=== PATIENT | female | born 1990 | race Hispanic/Latino ===

== ENCOUNTER 2018-10-03 05:33 | Inpatient (IN) | payer OTHER | END 2018-10-05 15:25 | disposition home or self-care (01) | LOC: LDH 05:33 → WSH 10:35 | PROC: 10D00Z1 Extraction of Products of Conception, Low, Open Approach (ICD-10-PCS; principal; 2018-10-03 08:00) | DX: O34.211 Maternal care for low transverse scar from previous cesarean delivery (principal); Z37.0 Single live birth; O24.429 Gestational diabetes mellitus in childbirth, unspecified control ==